=== PATIENT | male | born 1960 | race Caucasian/White ===

== ENCOUNTER 2024-05-07 00:25 | Emergency (ER) | payer MEDICAID ==
[2024-05-07] MEDS: metFORMIN 500 MG Tab PO ONE (01:13)
[2024-05-07] MEDS ORDERED: metFORMIN 500 MG Tab PO ONE (01:15)
== END 2024-05-07 01:23 ==
LOC: VM.ED 00:25
DX: Z02.89 Encounter for other administrative examinations (principal)
CPT/HCPCS: 99283; A9270